=== PATIENT | female | born 1990 | race Caucasian/White ===

== ENCOUNTER 2025-06-17 17:20 | Emergency (ER) | payer MEDICAID, OTHER ==
[~2025-06-17] VITALS: Ht 165.1 cm; Wt 134.0 kg
[2025-06-17 17:32] VITALS: O2SAT 98
[2025-06-17 20:18] VITALS: TEMP 37.1
[2025-06-17 21:40] LABS: HCG SCREEN NEGATIVE
[2025-06-17] MEDS: ACETAMINOPHEN 325MG TABLET PO ONE (22:10)
[2025-06-17] MEDS: LIDOCAINE 5% PATCH TOP SCH (22:10)
[2025-06-17] MEDS: KETOROLAC 15MG/ML VIAL IM ONE (22:10)
[2025-06-17 22:14] VITALS: BP 108/45; PULSE 64; RESP 14; O2SAT 98
== END 2025-06-17 23:02 | disposition home or self-care (01) ==
LOC: ER 17:20
DX: M54.9 Dorsalgia, unspecified (principal); V43.52XA Car driver injured in collision with other type car in traffic accident, initial encounter; Y93.89 Activity, other specified; Y92.89 Other specified places as the place of occurrence of the external cause; Y99.8 Other external cause status
CPT/HCPCS: 99285; 72131; 81025; 84703; 96372; J1885